=== PATIENT | male | born 1990 | race Caucasian/White ===

== ENCOUNTER 2017-01-25 23:26 | Inpatient (IN) | payer MEDICAID ==
[~2017-01-25] VITALS: Ht 172.7 cm; Wt 80.2 kg
[2017-01-25] MEDS ORDERED: HYDR-4031 PO (23:36)
[2017-01-25] MEDS ORDERED: FLUO-191 PO (23:36)
[2017-01-25 23:42] LABS: GLUCOSE,POINT OF CARE 104 MG/DL (70-110)
[2017-01-26] MEDS ORDERED: ZOLPIDEM TARTRATE 10 MG TABLET PO PRN
[2017-01-26] MEDS ORDERED: LORazepam 2 MG TABLET PO PRN
[2017-01-26] MEDS ORDERED: MAG HYDROX/AL HYDROX/SIMETH ES 30 ML SUSPENSION UDCUP PO PRN
[2017-01-26] MEDS ORDERED: HALOPERIDOL 5 MG TABLET PO PRN
[2017-01-26] MEDS ORDERED: MAGNESIUM HYDROXIDE SUSPENSION 30 ML UDCUP PO PRN
[2017-01-26] MEDS ORDERED: ACETAMINOPHEN 325 MG TABLET PO PRN
[2017-01-26 00:36] LABS: BASOPHILS % (AUTO) 0.6 % (0.0-2.0); EOSINOPHILS % (AUTO) 1.2 % (1.0-6.0); HEMATOCRIT 47.5 % (41-53); HEMOGLOBIN 16.4 g/dL (13.5-17.5); LYMPHOCYTES # (AUTO) 3.5 K/uL (1.0-4.8); LYMPHOCYTES % (AUTO) 38.9 % (22.0-44.0); MEAN CORPUSCULAR HEMOGLOBIN 31.8 pg (26.0-34.0); MEAN CORPUSCULAR HGB CONC 34.6 G/dL (31.0-37.0); MEAN CORPUSCULAR VOLUME 92 fL (80-100); MONOCYTES # (AUTO) 0.9 K/uL (0.1-1.0); MONOCYTES % (AUTO) 9.7 % (2.0-9.0); NEUTROPHILS # (AUTO) 4.5 K/uL (1.8-7.7); NEUTROPHILS % (AUTO) 49.6 % (40.0-70.0); PLATELET COUNT (AUTO) 323 K/uL (150-450); RED BLOOD CELL COUNT(AUTO) 5.16 MIL/uL (4.50-5.90); RED CELL DISTRIBUTION WIDTH 13.6 % (11.5-14.5); WHITE BLOOD COUNT (AUTO) 9.1 K/uL (4.5-11.0)
[2017-01-26 00:41] LABS: ANION GAP 8 mmol/L (8-16); CALCIUM, TOTAL 9.7 mg/dL (8.8-10.5); CARBON DIOXIDE 28 mmol/L (22-29); CHLORIDE 100 mmol/L (98-107); CREATININE 0.99 mg/dL (0.60-1.30); GLOMERULAR FILTR. RATE CALC > 60 mL/min (>60); POTASSIUM 3.7 mmol/L (3.5-5.1); SODIUM SERUM 136 mmol/L (136-145); UREA NITROGEN, BLOOD 10 mg/dL (7-18)
[2017-01-26 00:47] LABS: ALANINE AMINOTRANSFERASE 39 U/L (12-78); ALBUMIN 4.6 g/dL (3.4-5.0); ASPARTATE AMINOTRANSFERASE 26 U/L (15-37); BILIRUBIN,TOTAL 0.7 mg/dL (0.1-1.0); TOTAL PROTEIN, SERUM 8.3 g/dL (6.4-8.2)
[2017-01-26 05:35] VITALS: BP 130/90
[2017-01-26 06:03] LABS: CHOL/HDL RATIO 3.6 (4.2-7.3)
[2017-01-26 08:17] LABS: ADD UA MICROSCOPIC NO; APPEARANCE,URINE CLEAR (CLEAR); GLUCOSE, URINE (UA) NEGATIVE (NEGATIVE); KETONES,URINE TRACE mg/dL (NEGATIVE); LEUKOCYTE ESTERASE ,URINE NEGATIVE (NEGATIVE); OCCULT BLOOD,URINE NEGATIVE (NEGATIVE); PROTEIN,URINE NEGATIVE (NEGATIVE)
[2017-01-26 08:30] VITALS: BP 130/88
[2017-01-26] MEDS: HydrOXYzine PAMOATE 25 MG CAPSULE PO SCH ×2 (11:06→16:13)
[2017-01-26] MEDS: FLUoxetine HCL 20 MG CAPSULE PO SCH (11:06)
[2017-01-26 16:00] VITALS: BP 124/77
[2017-01-27 06:22] VITALS: BP 120/85
[2017-01-27] MEDS: FLUoxetine HCL 20 MG CAPSULE PO SCH (09:26)
[2017-01-27] MEDS: HydrOXYzine PAMOATE 25 MG CAPSULE PO SCH ×2 (09:26→16:38)
[2017-01-27 13:24] VITALS: BP 124/59
[2017-01-27] MEDS ORDERED: IBUPROFEN 400 MG TABLET PO PRN (14:00)
[2017-01-27] MEDS ORDERED: ACETAMINOPHEN 325 MG TABLET PO PRN (14:00)
[2017-01-27 19:35] VITALS: BP 116/78
[2017-01-28 05:58] VITALS: BP 121/81
[2017-01-28 08:05] VITALS: BP 134/86
[2017-01-28] MEDS: FLUoxetine HCL 20 MG CAPSULE PO SCH (09:02)
[2017-01-28] MEDS: HydrOXYzine PAMOATE 25 MG CAPSULE PO SCH ×2 (09:02→17:50)
[2017-01-28 16:57] VITALS: BP 127/76
[2017-01-29] MEDS: FLUoxetine HCL 20 MG CAPSULE PO SCH (08:57)
[2017-01-29] MEDS: HydrOXYzine PAMOATE 25 MG CAPSULE PO SCH ×2 (08:57→16:16)
[2017-01-29 14:42] VITALS: BP 108/71
[2017-01-29 19:50] VITALS: BP 114/65
== END 2017-01-29 20:00 | disposition home or self-care (01) | DRG 776 ==
LOC: EMS 23:30 → 3EI 23:31
PROVIDERS: ADMIT Psychiatry & Neurology Psychiatry; ATTEND Psychiatry & Neurology Child & Adolescent Psychiatry
DX: F19.959 Other psychoactive substance use, unspecified with psychoactive substance-induced psychotic disorder, unspecified (principal); R45.851 Suicidal ideations; F20.9 Schizophrenia, unspecified; F15.10 Other stimulant abuse, uncomplicated; R00.0 Tachycardia, unspecified; Z79.899 Other long term (current) drug therapy; Z71.51 Drug abuse counseling and surveillance of drug abuser
CPT/HCPCS: 82962; 84443; 99285; G0480